=== PATIENT | male | born 1965 | race Caucasian/White ===

== ENCOUNTER 2018-11-29 11:51 | Day surgery (SDC) | payer OTHER ==
[~2018-11-29] VITALS: Ht 188 cm; Wt 124.7 kg
[~2018-11-29 11:51] MED LIST: ACET500T68 PO; ASCO500C9 PO; BACL20TA PO; GLUC1CAP18 PO; HYDR-2761 PO; HYDROmorphone 2 MG/ML VIAL IV PRN; IBUP-1060 PO; IV RINGERS,LACTATED 1000ML 1,000 ML IV SCH; MORPHINE SULFATE 2 MG/ML VIAL. IV PRN; MULT-208 PO; OMEG1CAP6 PO; ONDANSETRON PF 4 MG/2 ML VIAL. IV PRN; PROCHLORPERAZINE 10 MG/2 ML VIAL. IV PRN; ceFAZolin SODIUM 3 GM in IV DEXTROSE 5% 100ML 100 ML IV PRN; fentaNYL PF VIAL 100 MCG/2 ML VIAL IV PRN
[2018-11-29] MEDS ORDERED: CIDE600C PO (12:03)
[2018-11-29] MEDS ORDERED: MIDAZOLAM HCL/PF 2 MG/2 ML VIAL. ONE (12:48)
[2018-11-29] MEDS ORDERED: FAMOTIDINE 20 MG/2 ML VIAL ONE (12:57)
[2018-11-29] MEDS ORDERED: LIDOCAINE 2% PF 5 ML VIAL. ONE (12:57)
[2018-11-29] MEDS ORDERED: PROPOFOL 20 ML IV ONE (12:57)
[2018-11-29] MEDS ORDERED: ONDANSETRON PF 4 MG/2 ML VIAL. ONE (12:57)
[2018-11-29] MEDS ORDERED: DEXAMETHASONE SOD PHOS 4 MG/ML VIAL ONE (13:30)
[2018-11-29] MEDS ORDERED: fentaNYL PF VIAL 100 MCG/2 ML VIAL ONE (13:32)
[2018-11-29] MEDS ORDERED: BUPIVACAINE MPF 0.5% 30 ML VIAL. ONE (14:05)
[2018-11-29] MEDS ORDERED: 0.9 % SODIUM CHLORIDE 20 ML VIAL. IJ ONE (14:05)
[2018-11-29] MEDS ORDERED: SURGICEL HEMOSTAT 4X8 EACH. ONE (14:21)
[2018-11-29] MEDS ORDERED: BACITRACIN TOPICAL OINT 14GM TUBE. TP ONE (14:22)
[2018-11-29] MEDS ORDERED: DESFLURANE 31 TO 60 MINUTES IH ONE (14:27)
--- NOTE | 2018-11-29 14:45 | DISCH ---
DISCHARGE INSTRUCTIONS Condition on Discharge Condition on Discharge: Stable Activity After Discharge Activity Instructions for Disc: Activity as tolerated, Avoid exertion Lifting Instructions after Dis: No heavy lifting Driving Instructions after Dis: Do not drive today Diet after Discharge Diet after Discharge: Regular Wound Incision Care Wound/Incision Care: Ice to area for comfort Follow-Up Follow up with: Trent Sunday for dressing change EDNA CAMPOS MD Nov 29, 2018 14:45
--- NOTE | 2018-11-29 14:52 | PDOC ---
BRIEF OPERATIVE NOTE Date: Nov 29, 2018 Pre-Op Diagnosis left breast abscess Post-Op Diagnosis same Procedure Performed Incision and drainage Surgeon Trent Anesthesia Type: General (LMA) Blood Loss 25cc IV Fluid 300cc Specimens Obtained cultures skin and subcutaneous tissue 2:00 breast biopsy 2:00 Findings sebaceous abscess Complications none Operative Note # [id number] EDNA CAMPOS MD Nov 29, 2018 14:52
[2018-11-29] MEDS ORDERED: oxyCODONE/APAP 5/325 1 TAB TABLET PO ONE (15:00)
--- NOTE | 2018-11-29 15:14 | OP ---
DATE OF SURGERY: 11/29/2018 PREOPERATIVE DIAGNOSIS: Left breast abscess. POSTOPERATIVE DIAGNOSIS: Left breast abscess. PROCEDURE: Incision and drainage. SURGEON: Edna Campos MD ANESTHESIA: General LMA. ESTIMATED BLOOD LOSS: 25 mL. INTRAVENOUS FLUIDS: 300 mL. DESCRIPTION OF PROCEDURE: The patient was brought to the operating suite, given a general LMA in the left breast, was prepped and draped in usual sterile fashion. The area of fluctuance in the mid portion of the process at 2 o'clock was opened and immediately expressed purulent drainage and sebum. Opening was extended to allow culture of the cavity. The skin and underlying process were removed with cautery dissection. An area of firm white change in the deepest portion of the wound was biopsied. Wound was irrigated, evacuated and checked for hemostasis, which was obtained with 3-0 Vicryl stick tie and cautery. When a correct sponge count was obtained, the wound was dressed with Surgicel, antibiotic ointment, 1-inch plain Nu Gauze soaked in saline. Sterile dressing applied. The patient was awakened from his anesthetic and taken to the recovery room in satisfactory condition. EDNA CAMPOS MD DR: TONY/jose martin JOB#: [id number] / [id number]
[2018-11-29] MEDS ORDERED: OXYC1TAB15 PO (15:15)
[2018-11-29 15:35] VITALS: BP 162/90
--- NOTE | 2018-12-03 18:06 | PATHOLOGY ---
[facility] Accession Number: [id number] . 01 Material submitted: . PART A: breast - LEFT BREAST BIOPSY 2:00. Modifiers: left, 2:00 PART B: breast - SKIN AND SUBCUTANEOUS TISSUE LEFT BREAST 2:00. Modifiers: left, 2:00 . 01 Clinical history: . Left breast abscess. . 02 Diagnosis: A. Segment of fibroadipose tissue, left breast biopsy 2:00: - Small portion of abscess with focal reactive fibrosis and chronic inflammation of surrounding soft tissues. . B. Segments of skin and subcutaneous tissue, left breast 2:00: - Abscess with focal associated segments of squamous epithelium and keratinaceous material, consistent with ruptured epidermal inclusion cyst, with reactive fibrosis and chronic inflammation of surrounding soft tissues. . (JPM:jessie; 12/03/2018) [facility] 12/03/2018 1557 Local . 02 Comment: There is no evidence of malignancy. (JPM:jessie; 12/03/2018) . 02 Electronically signed: . Paul Cruz MD, Pathologist NPI- [id number] . 01 Gross description: . A. Received in formalin labeled "Len Orozco, left breast biopsy 2:00" is a portion of yellow-theodore lobulated soft tissue weighing 2 g and measuring 2.6 x 2.0 x 1.6 cm. The external surface is inked black. The specimen is sectioned to reveal a yellow-theodore lobulated cut surface with 10% dense white fibrous tissue. The specimen is submitted entirely in cassettes A1-A3. . B. Received in formalin labeled "Len Orozco, skin and subQ tissue left breast 2:00" is a 22 g aggregate of yellow-theodore lobulated tissue and theodore-white skin measuring in aggregate 6.2 x 5.7 x 3.3 cm. The skin surface displays a full-thickness ulcerated defect measuring 3.0 x 1.1 cm. An additional area of hemorrhage is identified on a separate piece of soft tissue, measuring 2.7 x 2.1 cm. Upon sectioning, the cut surfaces of the soft tissue are yellow and lobulated. [employer] sections are submitted in cassettes B1-B2. ([facility]; 12/02/2018) [facility] 12/03/[address] [place] [address] . Pathologist provided ICD-10: N60.32, N61.0, L72.0, L90.5, L98.9 . 02 CPT . 363055, 356881 Specimen Comment: A courtesy copy of this report has been sent to Specimen Comment: [phone], . Specimen Comment: Report sent to / DR RONQUILLO Performed at: 01 [facility] [address], [place], [place] [id number] MD Tong Rothman MD Phone: [phone] Performed at: 02 [facility] [address], [place] [id number] MD Paul Cruz MD Phone: [phone]
== END 2018-11-29 15:50 | disposition home or self-care (01) ==
LOC: SURG 11:51
PROVIDERS: ATTEND Surgery
DX: N61.1 Abscess of the breast and nipple (principal); E78.00 Pure hypercholesterolemia, unspecified; G47.30 Sleep apnea, unspecified; M10.9 Gout, unspecified; E66.9 Obesity, unspecified; Z68.36 Body mass index [BMI] 36.0-36.9, adult; Z87.891 Personal history of nicotine dependence; Z72.89 Other problems related to lifestyle
CPT/HCPCS: 19020; 87071; 87075; A7015; J1100; J2001; J2250; J2405; J2704; J3010; J3490; J7120; 88305

== ENCOUNTER → 2018-12-10 | Outpatient (CLI) | payer OTHER ==
[2018-11-29 15:35] VITALS: BP 162/90
[~2018-12-10] MED LIST changes: +CIDE600C PO; -HYDROmorphone 2 MG/ML VIAL IV PRN; -IV RINGERS,LACTATED 1000ML 1,000 ML IV SCH; -MORPHINE SULFATE 2 MG/ML VIAL. IV PRN; -ONDANSETRON PF 4 MG/2 ML VIAL. IV PRN; +OXYC1TAB15 PO; -PROCHLORPERAZINE 10 MG/2 ML VIAL. IV PRN; -ceFAZolin SODIUM 3 GM in IV DEXTROSE 5% 100ML 100 ML IV PRN; -fentaNYL PF VIAL 100 MCG/2 ML VIAL IV PRN
--- NOTE | 2018-12-11 12:58 | SLEEP ---
DATE OF STUDY: 12/10/2018 OBJECTIVE: The patient is a 53-year-old male with excessive somnolence. Height 76 inches, weight 276 pounds, body mass index 33.6. INTERPRETATION: Sleep architecture is characterized by sleep efficiency of 69% across the 7.2 hours of recording time. Stage volumes are appropriate. Sleep onset latency is 7.5 minutes. Operative treatment, the apnea/hypopnea index is 16.7 events per hour of sleep. On this study, the total apnea count is 219 events, for an overall apnea-hypopnea index of 44.2 events per hour of sleep. The minimum oxygen saturation is 76%. No significant cardiac arrhythmias or periodic limb movements of sleep are observed. The patient is started on CPAP. On a setting of 15 cm, the apnea/hypopnea index is 9.8 events per hour of sleep. CPAP titration at 17 cm paradoxically increased the apnea-hypopnea index to 248.6 events per hour of sleep, and at 20 cm, there was 24.4 events per hour of sleep. IMPRESSION: Abnormal polysomnogram showing obstructive sleep apnea and hypopnea, a partial night titration study was unsuccessful in reaching a therapeutic CPAP setting. A [employer] full face mask, medium size was used on the study. RECOMMENDATIONS: 1. The patient could be tried on 15 cm of CPAP and return to the lab for a BiPAP titration study using the above mask settings. 2. He should pursue weight loss and avoid sedatives and alcohol. Thank you for letting us help with the patient's care. LIZ AQUINO MD DR: DARON/jose martin JOB#: [id number] / [id number] JOY Fountain MD, Dr.
== END | disposition home or self-care (01) ==
LOC: SLPLAB 19:21
PROVIDERS: ATTEND Nurse Practitioner Adult Health
DX: G47.33 Obstructive sleep apnea (adult) (pediatric) (principal)
CPT/HCPCS: 95810

== ENCOUNTER → 2020-05-26 | Outpatient (CLI) | payer OTHER ==
--- NOTE | 2020-05-26 11:35 | KCIC ---
MRI BRAIN WO Date: 05/26/2020 8:05 AM Indication: CHRONIC HEADACHES. HX OF COVID IN FEB 2020, HEADACHES HAVE NOT GONE AWAY SINCE. Comparison: None. Technique: Multiplanar multisequence MRI of the brain was performed without intravenous contrast usin g the standard protocol. Findings: No acute infarct. No acute or chronic hemorrhage. The ventricles are normal in size and configuration without hydrocephalus. The scalp and calvarium are normal. The pituitary and sella are normal. No Chiari malformation. The v isualized upper cervical spine is normal. The visualized orbits and globes are normal. The visualized paranasal sinuses are clear. The mastoid air cells are clear. Normal flow voids within the vertebral, basilar, and internal carotid arteries indicating patency. IMPRESSION: No acute infarct, hemorrhage, mass, or hydrocephalus. Electronically signed by: Ludwig Sharif MD (05/26/2020 11:32 AM) [id number]
== END ==
LOC: KCIC MRI 07:53
PROVIDERS: ATTEND Nurse Practitioner Family
DX: G44.229 Chronic tension-type headache, not intractable (principal); G44.40 Drug-induced headache, not elsewhere classified, not intractable; Z86.16 Personal history of COVID-19
CPT/HCPCS: 70551

== ENCOUNTER → 2021-01-05 | Day surgery (SDC) | payer OTHER ==
[~2021-01-05] VITALS: Ht 188 cm; Wt 133.6 kg
[~2021-01-05] MED LIST changes: +COLC0.6T45 PO; +IV RINGERS,LACTATED 1000ML 1,000 ML IV SCH; +LIDOCAINE 2% PF 5 ML VIAL. ONE; +OMEG1CAP50 PO; +PROPOFOL 10 MG/ML (20ML) VIAL. IV ONE
[2021-01-05 08:01] VITALS: BP 166/88
--- NOTE | 2021-01-05 08:40 | HP ---
DATE OF SERVICE: 01/05/2021 ADMIT DATE: 01/05/2021 UPDATED HISTORY AND PHYSICAL REFERRING PHYSICIAN: Nick Lambert PA-C REASON: Colorectal screening. HISTORY: A 55-year-old male whose past medical history is significant for gouty arthritis, seen for screening colon exam. Bowel habits are regular without diarrhea or constipation. There has been no melena and/or hematochezia. Weight and appetite are stable and he is otherwise without additional complaints. PAST MEDICAL HISTORY: Significant for gouty arthritis. ALLERGIES: ADHESIVE TAPE. MEDICATIONS: Colchicine and omega-3. FAMILY HISTORY: Significant for diabetes with his mother, hypertension with both parents. SOCIAL HISTORY: He is a nonsmoker, social drinker. PAST SURGICAL HISTORY: Back surgery, wrist surgery, eye surgery and hernia repair. REVIEW OF SYSTEMS: Per records. PHYSICAL EXAMINATION: GENERAL: Reveals a well-nourished, well-developed white male who is alert, cooperative, in no acute distress. VITAL SIGNS: Temp is 97.8, pulse 81, respirations 20. LUNGS: Clear. CARDIOVASCULAR: Reveals an S1, S2, without S3, S4 or appreciable murmur. ABDOMEN: Reveals a soft abdomen, normal bowel sounds, without appreciable hepatosplenomegaly. EXTREMITIES: Reveals no cyanosis, clubbing or edema. IMPRESSION: Colorectal screening is warranted at this time. Risks and benefits of procedure including risk of hemorrhage and perforation with operation were discussed. The patient is willing to proceed. ALISE DR: Laura TID: [id number]
[2021-01-05 09:08] VITALS: BP 125/78
== END ==
LOC: ENDOS 07:42
PROVIDERS: ATTEND Internal Medicine Gastroenterology
DX: Z12.11 Encounter for screening for malignant neoplasm of colon (principal); K64.0 First degree hemorrhoids; K57.30 Diverticulosis of large intestine without perforation or abscess without bleeding; K63.89 Other specified diseases of intestine; M19.90 Unspecified osteoarthritis, unspecified site; I10 Essential (primary) hypertension; E78.00 Pure hypercholesterolemia, unspecified; E66.9 Obesity, unspecified; G47.30 Sleep apnea, unspecified; M10.9 Gout, unspecified; F41.9 Anxiety disorder, unspecified; F32.9 Major depressive disorder, single episode, unspecified; Z79.899 Other long term (current) drug therapy; Z72.89 Other problems related to lifestyle; Z98.890 Other specified postprocedural states; Z88.8 Allergy status to other drugs, medicaments and biological substances; Z82.49 Family history of ischemic heart disease and other diseases of the circulatory system; Z83.3 Family history of diabetes mellitus
CPT/HCPCS: 45378; J2704